=== PATIENT | male | born 1965 | race Caucasian/White ===

== ENCOUNTER 2016-08-22 21:20 | Emergency (ER) | payer OTHER ==
[~2016-08-22] VITALS: Ht 170.2 cm; Wt 104.3 kg
[~2016-08-22 21:20] MED LIST: ASPIR 8181 M1 PO; LIPITOR40 MG PO; LOPRESSOR25 MG PO; MOBIC7.5 MG PO; TRENTAL400 M1 PO; ULTRAM50 MG PO; ZYLOPRIM100 MG PO
[2016-08-22 21:29] VITALS: BP 133/82
--- NOTE | 2016-08-23 00:33 | NUR ---
PATIENT LEFT WITHOUT BEING SEEN BY DR. WADSWORTH. NO FURTHER CARE PROVIDED FOR PATIENT.
== END 2016-08-23 00:33 | disposition left against medical advice (07) ==
LOC: MED 21:20
DX: M79.89 Other specified soft tissue disorders (principal); Z53.21 Procedure and treatment not carried out due to patient leaving prior to being seen by health care provider

== ENCOUNTER 2018-03-06 07:51 | Emergency (ER) | payer OTHER ==
[~2018-03-06] VITALS: Ht 167.6 cm; Wt 91.6 kg
[~2018-03-06 07:51] MED LIST changes: +ALLO100T21 PO; +ASPI81EC98 PO; -ASPIR 8181 M1 PO; +ATOR40TA PO; -LIPITOR40 MG PO; -LOPRESSOR25 MG PO; +MELO7.5T11 PO; +METO25TA PO; -MOBIC7.5 MG PO; +PENT400T PO; +TRAM50TA1 PO; -TRENTAL400 M1 PO; -ULTRAM50 MG PO; -ZYLOPRIM100 MG PO
[2018-03-06 08:09] VITALS: BP 128/87
--- NOTE | 2018-03-06 08:14 | NUR ---
PATIENT WHEELCHAIR ASSISTED TO BED 6.
--- NOTE | 2018-03-06 08:30 | NUR ---
53 yo m bib friend with c/o left thigh radiating to left foot x yesterday, progressively getting worse. Patient denies any recent injury or fall. Patient sts he has been drinking more often than usual...patient has history of gout. Swelling noted to left ankle. No discoloration noted. last drink last night. pt aaox4, gcs 15. cms intact. rr even and unlabored. lungs bl clear. abd soft, non-tender. bowel sounds active x 4 quadrants. skin pink, warm, dry to the touch. ambulatory w/ slow, steady gait. er md notified. pt needs met, safety precautions in place. will continue to monitor.
[2018-03-06] MEDS ORDERED: MORPHINE SULFATE 2 MG/ML SYR IM ONE (08:50)
[2018-03-06] MEDS ORDERED: KETOROLAC 60 MG/2 ML VIAL IM ONE (08:50)
[2018-03-06 09:30] VITALS: BP 128/87
--- NOTE | 2018-03-06 09:31 | NUR ---
Patient discharged with v/s stable. Written and verbal after care instructions given and explained. Patient alert, oriented and verbalized understanding of instructions. Wheel Chair Assisted with to car. All questions addressed prior to discharge. ID band removed. Patient advised to follow up with PMD. Rx of voltaren xr given. Patient educated on indication of medication including possible reaction and side effects. Opportunity to ask questions provided and answered.
== END 2018-03-06 09:25 | disposition home or self-care (01) ==
LOC: MED 07:51
DX: M54.16 Radiculopathy, lumbar region (principal); I48.91 Unspecified atrial fibrillation; I10 Essential (primary) hypertension; F17.200 Nicotine dependence, unspecified, uncomplicated; Z79.899 Other long term (current) drug therapy
CPT/HCPCS: 96372; 99284; J1885; J2270

== ENCOUNTER 2018-04-07 11:28 | Emergency (ER) | payer OTHER ==
[~2018-04-07] VITALS: Ht 170.2 cm; Wt 92.5 kg
[2018-04-07 11:39] VITALS: BP 124/70
--- NOTE | 2018-04-07 12:03 | NUR ---
PATIENT PRESENTS TO ED WITH THE CHIEF C/O B/L FOOT PAIN SINCE 5 DAYS AGO . PT HAS OPEN WOUND IN BETWEEN GREAT TOE AND 2ND TOE ON LEFT FOOT AND 2ND TOE AND 3RD TOE ON RIGHT FOOT. PT STATES HE WAS DOING YARD WORK WHEN SYMPTOMS STARTED. DENIES N/V/D; SKIN IS PINK/WARM/DRY; AAOX4 WITH EVEN AND STEADY GAIT; LUNGS CLEAR BL; HR EVEN AND REGULAR; PT DENIES ANY FEVER, CP, SOB, OR COUGH AT THIS TIME; PATIENT STATES FOOT PAIN OF 10/10 AT THIS TIME; VSS; PATIENT POSITIONED FOR COMFORT; HOB ELEVATED; BEDRAILS UP X2; BED DOWN. ER MD MADE AWARE OF PT STATUS.
[2018-04-07] MEDS ORDERED: KETOROLAC 60 MG/2 ML VIAL IM ONE (12:55)
--- NOTE | 2018-04-07 13:01 | NUR ---
Patient discharged with v/s stable. Written and verbal after care instructions given and explained to police and pt. Verbalized understanding. Ambulatory with in custody. All questions addressed prior to discharge. Advised to follow up with PMD. Addendum: 04/07/18 at 1304 by [email or web address] WRONG PT CHARTING
--- NOTE | 2018-04-07 14:00 | NUR ---
VERBALIZED DECREASED PAIN. SLEEPING IN BED COMFORTABLY AT THIS TIME.
[2018-04-07] MEDS ORDERED: BACITRACIN OINT 500 UNITS/GM PKT TP ONE (14:35)
--- NOTE | 2018-04-07 15:02 | NUR ---
PROVIDED PT WITH WOUND CARE BY IRRIGATION OF BOTH FEET FOLLOWED APPLYING BACITRACIN. DRESSED THE WOUNDS USING NON ADHERENT DRESSING AND WRAPPED THEM WITH A ROLL OF GAUZE.
--- NOTE | 2018-04-07 15:41 | NUR ---
Patient discharged with v/s stable. Written and verbal after care instructions given and explained. Patient alert, oriented and verbalized understanding of instructions. Ambulatory with steady gait. All questions addressed prior to discharge. ID band removed. Patient advised to follow up with PMD. Rx of BACTRIM, MOTRIN AND KEFLIX given. Patient educated on indication of medication including possible reaction and side effects. Opportunity to ask questions provided and answered.
[2018-04-07 15:44] VITALS: BP 119/69
== END 2018-04-07 15:41 | disposition home or self-care (01) ==
LOC: MED 11:28
DX: L03.116 Cellulitis of left lower limb (principal); L03.115 Cellulitis of right lower limb; I10 Essential (primary) hypertension; Z79.899 Other long term (current) drug therapy; Z79.82 Long term (current) use of aspirin
CPT/HCPCS: 96372; 99283; J1885

== ENCOUNTER 2018-10-25 17:36 | Inpatient (IN) | payer OTHER ==
[~2018-10-25] VITALS: Ht 170.2 cm; Wt 86.2 kg
[2018-10-25 17:45] VITALS: BP 136/84
--- NOTE | 2018-10-25 17:45 | NUR ---
PATIENT AMBULATED TO ER BED 11.
--- NOTE | 2018-10-25 17:52 | NUR ---
PT C/O SHAVONNE SHOULDER PAIN & DIZZINESS X3 DAYS, ALSO REPORTS FATIGUE, DIFF BREATHING AND NAUSEA. REPORTS BLURRY VISION. TOOK GABAPENTIN. PMH---GOUT, ANEMIA, [place] (2014), SPINAL ARTHRITIS. PATIENT STATES PAIN OF 5/10 AT THIS TIME; PATIENT POSITIONED FOR COMFORT; HOB ELEVATED; BEDRAILS UP X2; BED DOWN. ER MADE AWARE OF PT STATUS. Addendum: 10/25/18 at 1759 by [email or web address] PT STATED FEEL STRESSFUL ABOUT HIS GIRLFRIEND & A PLACE TO STAY. HE STAYS WITH HIS DAUGHTER . Addendum: 10/25/18 at 1858 by [email or web address] HX:HTN, HIGH CHOLESTEROL
[2018-10-25] MEDS ORDERED: MORPHINE SULFATE 4 MG/ML SYR IVP ONE (18:25)
[2018-10-25] MEDS ORDERED: ASPIRIN 325 MG TAB PO ONE (18:25)
[2018-10-25] MEDS ORDERED: NITROGLYCERIN 2% 1 GM PKT TP ONE (18:25)
--- NOTE | 2018-10-25 18:29 | NUR ---
C/O CP AT THIS TIME.
[2018-10-25 18:39] LABS: BASOPHILS # (AUTO) 0.1 K/uL (0.00-0.22); BASOPHILS % (AUTO) 1.3 % (0.0-2.0); EOSINOPHILS # (AUTO) 0.1 K/uL (0-0.4); EOSINOPHILS % (AUTO) 1.1 % (0.0-4.0); HEMOGLOBIN 10.2 g/dL (12.0-18.0); LYMPHOCYTES % (AUTO) 25.7 % (20.5-51.1); MEAN CORPUSCULAR HEMOGLOBIN 22 pg (27-31); MEAN CORPUSCULAR HGB CONC 31 g/dL (33-37); MEAN CORPUSCULAR VOLUME 69.8 fL (80-94); MONOCYTES # (AUTO) 0.5 K/uL (0.8-1.0); MONOCYTES % (AUTO) 6.3 % (1.7-9.3); NEUTROPHILS # (AUTO) 5.1 K/uL (1.8-7.7); NEUTROPHILS % (AUTO) 65.6 % (42.2-75.2); PLATELET COUNT (AUTO) 346 K/uL (140-450); RED BLOOD CELL COUNT(AUTO) 4.72 MIL/uL (4.20-6.10); RED CELL DISTRIBUTION WIDTH 21.6 % (11.6-13.7); WHITE BLOOD COUNT (AUTO) 7.8 K/uL (4.8-10.8)
[2018-10-25] MEDS ORDERED: SIMVASTATIN 20 MG TAB PO SCH (18:45)
--- NOTE | 2018-10-25 18:48 | NUR ---
spoke to pt's daughter;abebe [phone].
[2018-10-25 18:57] LABS: CHOL/HDL RATIO 2.9 (1-4.5)
[2018-10-25] MEDS ORDERED: GABA300C PO (19:01)
[2018-10-25 19:02] LABS: CREATINE KINASE MB 1.4 ng/mL (0-3.6)
--- NOTE | 2018-10-25 19:05 | NUR ---
Pt report given to AMANDA VAZQUEZ. Transfer of care at this time.
[2018-10-25 19:13] LABS: ANION GAP 11.4 (8-16); CARBON DIOXIDE 26.1 mmol/L (21-32); POTASSIUM 3.5 mmol/L (3.5-5.1)
[2018-10-25 19:16] LABS: TOTAL BILIRUBIN 0.3 mg/dL (0.0-1.0)
--- NOTE | 2018-10-25 19:18 | NUR ---
RECIEVED REPORT FROM DAY SHIFT KEERTHI VAZQUEZ. Addendum: 10/25/18 at 1919 by ROMY VSS ON MONITOR.
--- NOTE | 2018-10-25 19:33 | NUR ---
UNABLE TO GIVE STATIN, DR ROSE MADE AWARE. STATED TO INFORM ADMITTING
[2018-10-25] MEDS: NACL 0.9% 1,000 ML IV SCH (19:39)
[2018-10-25] MEDS ORDERED: HYDROcodone/APAP 5/325 MG 1 TAB TAB PO PRN (19:40)
[2018-10-25] MEDS ORDERED: LORazepam 2 MG/ML VIAL IM/IVP PRN (19:40)
[2018-10-25] MEDS ORDERED: ZOLPIDEM 5 MG TAB PO PRN (19:40)
[2018-10-25] MEDS ORDERED: DOCUSATE SODIUM 100 MG GELCAP PO PRN (19:40)
[2018-10-25] MEDS ORDERED: ACETAMINOPHEN 325 MG TAB PO PRN (19:40)
[2018-10-25] MEDS ORDERED: MORPHINE SULFATE 2 MG/ML SYR IVP PRN (19:40)
[2018-10-25] MEDS ORDERED: ONDANSETRON 4 MG/2 ML VIAL IM/IVP PRN (19:40)
--- NOTE | 2018-10-25 19:50 | NUR ---
PT ARRIVED FROM ER VIA GURNEY. AAOX4. NO C/O PAIN OR DIZZINESS AT THIS TIME. NO RESP DISTRESS NOTED. SKIN INTACT. IV TO LEFT AC #20G, PATENT AND INTACT. PT AMBULATES WITHOUT ASSIST. PT HAS WHITE SPOTS/VITILIGO ON THE SKIN, BODY AND FACE. ORIENTED PT TO ROOM. DISCUSSED PLAN OF CARE, PT VERBALIZED UNDERSTANDING. SAFETY PRECAUTION IN PLACE. CALL LIGHT WITHIN REACH.
--- NOTE | 2018-10-25 19:57 | NUR ---
[facility] ADMITTED TO TELEMETRY UNIT UNDER CARE OF DR. SMITH. REPORT GIVEN TO RN. [facility].
[2018-10-25 20:00] VITALS: BP 122/74
[2018-10-25 20:03] LABS: APPEARANCE,URINE CLEAR (CLEAR); BILIRUBIN,URINE NEGATIVE (NEGATIVE); BLOOD, URINE NEGATIVE (NEGATIVE); COLOR,URINE YELLOW (YELLOW); LEUKOCYTE ESTERASE ,URINE NEGATIVE (NEGATIVE); NITRITE, URINE NEGATIVE (NEGATIVE); UGLUCOSE NEGATIVE (NEGATIVE)
[2018-10-25 20:09] LABS: PROTHROMBIN TIME 9.5 secs (10.8-13.4)
[2018-10-25 20:11] LABS: BARBITURATE, URINE NEG. ng/ml (NEG <=200); BENZODIAZEPINE, URINE NEG. ng/mL (NEG <=200); CANNABINOID, URINE NEG. ng/mL (NEG <=50); COCAINE, URINE NEG. ng/mL (NEG <=300); OPIATE, URINE NEG. ng/mL (NEG <=2000); PHENCYCLIDINE SCREEN,URINE NEG. ng/mL (NEG <=25)
[2018-10-25 20:20] LABS: CHOL/HDL RATIO 3.1 (1-4.5); MAGNESIUM 1.8 mg/dL (1.8-2.4); PHOSPHORUS 2.1 mg/dL (2.5-4.9); THYROID STIMULATING HORMONE 2.01 uIU/mL (0.34-3.74)
[2018-10-25] MEDS ORDERED: NITROGLYCERIN 0.4 MG TAB SL PRN (20:55)
[2018-10-25] MEDS: SIMVASTATIN 20 MG TAB PO SCH (21:02)
[2018-10-25] MEDS ORDERED: ALLOPURINOL 100 MG TAB PO SCH ×2 (21:10→21:30)
[2018-10-25] MEDS ORDERED: GABAPENTIN 300 MG CAP PO SCH (21:30)
--- NOTE | 2018-10-25 22:00 | NUR ---
PT REFUSED SCD. EXPLAINED TO PT THE RISK AND BENEFITS. PT VERBALIZED UNDERSTANDING. PT AMBULATES WITHOUT ASSIST.
[2018-10-26] VITALS: BP 110/65
--- NOTE | 2018-10-26 | NUR ---
V/S CHECKED, WNL. PT RESTING IN BED. NO C/O PAIN OR DIZZINESS AT THIS TIME. ALL NEEDS ATTENDED AT THIS TIME.
[2018-10-26] MEDS ORDERED: SODIUM FERRIC GLUCONATE 125 MG in NACL 0.9% 100 ML IV ONE (01:25)
--- NOTE | 2018-10-26 02:10 | NUR ---
PT ASKED FOR SNACK. SNACK PROVIDED. ALL NEEDS MET AT THIS TIME. CALL LIGHT WITHIN REACH.
[2018-10-26 04:00] VITALS: BP 109/64
--- NOTE | 2018-10-26 04:30 | NUR ---
PT SLEEPING BUT EASILY AROUSABLE. NO S/S OF PAIN OR DISCOMFORT. NO S/S OF RESP DISTRESS NOTED. CALL LIGHT WITHIN REACH.
--- NOTE | 2018-10-26 05:55 | NUR ---
PT'S HEART RATE ON MONITOR 45. PT SLEEPING BUT EASILY AROUSABLE. NO S/S OF ACUTE DISTRESS. DR. BROWN MADE AWARE.
[2018-10-26] MEDS ORDERED: SODIUM FERRIC GLUCONATE 125 MG in NACL 0.9% 100 ML IV SCH (06:00)
[2018-10-26 06:53] LABS: ANION GAP 10.7 (8-16); CARBON DIOXIDE 28.1 mmol/L (21-32); POTASSIUM 3.8 mmol/L (3.5-5.1)
[2018-10-26 06:54] LABS: BASOPHILS # (AUTO) 0.1 K/uL (0.00-0.22); BASOPHILS % (AUTO) 1.3 % (0.0-2.0); EOSINOPHILS # (AUTO) 0.2 K/uL (0-0.4); EOSINOPHILS % (AUTO) 2.3 % (0.0-4.0); HEMATOCRIT 29.4 % (36-52); HEMOGLOBIN 9.2 g/dL (12.0-18.0); LYMPHOCYTES # (AUTO) 2.8 K/uL (2.0-11.5); LYMPHOCYTES % (AUTO) 35.1 % (20.5-51.1); MEAN CORPUSCULAR HEMOGLOBIN 22 pg (27-31); MEAN CORPUSCULAR HGB CONC 31 g/dL (33-37); MEAN CORPUSCULAR VOLUME 69.1 fL (80-94); MONOCYTES # (AUTO) 0.7 K/uL (0.8-1.0); MONOCYTES % (AUTO) 9.1 % (1.7-9.3); NEUTROPHILS # (AUTO) 4.2 K/uL (1.8-7.7); NEUTROPHILS % (AUTO) 52.2 % (42.2-75.2); PLATELET COUNT (AUTO) 324 K/uL (140-450); RED BLOOD CELL COUNT(AUTO) 4.26 MIL/uL (4.20-6.10); RED CELL DISTRIBUTION WIDTH 22.1 % (11.6-13.7)
--- NOTE | 2018-10-26 07:10 | NUR ---
ENDORSED PT TO DAY SHIFT NURSE. PT IN STABLE CONDITION.
--- NOTE | 2018-10-26 07:11 | NUR ---
RECEIVED BEDSIDE REPORT FROM NIGHT NURSE. PT IS AOX4 WITH NO PAIN OR REQUESTS. NO OBVIOUS SIGNS OF DISTRESS AND IV SITE IS CURRENTLY A LEFT ANTECUBITAL THAT IS PATENT AND INTACT WITH NORMAL SALINE INFUSING AT 60ML/HR. ALL SAFETY MEASURES ARE IN PLACE WITH CALL LIGHT WITHIN REACH.
[2018-10-26 08:00] VITALS: BP 106/62
--- NOTE | 2018-10-26 08:30 | NUR ---
PATIENT HAS BEEN SCREENED AND CATEGORIZED MODERATE NUTRITION RISK. PATIENT WILL BE SEEN WITHIN 3-5 DAYS OF ADMISSION. 10/28/18DYANA DEL [address]
[2018-10-26] MEDS ORDERED: METOPROLOL 25 MG TAB PO SCH (09:00)
--- NOTE | 2018-10-26 09:24 | NUR ---
ADMINISTERED MEDICATIONS. PATIENT HAS NO COMPLAINTS OR REQUESTS AND IS FREE OF OBVIOUS SIGNS OF DISTRESS. REVIEWED INDICATIONS OF MEDICATIONS WITH PATIENT.
[2018-10-26] MEDS: GABAPENTIN 300 MG CAP PO SCH ×2 (09:42→20:06)
[2018-10-26] MEDS: ASPIRIN 81 MG TAB.CHEW PO SCH (09:42)
[2018-10-26] MEDS: ALLOPURINOL 100 MG TAB PO SCH ×2 (09:43→20:06)
[2018-10-26] MEDS: LISINOPRIL 5 MG TAB PO SCH (09:43)
[2018-10-26] MEDS: SODIUM FERRIC GLUCONATE 125 MG in NACL 0.9% 100 ML IV SCH (09:44)
--- NOTE | 2018-10-26 11:35 | NUR ---
ADMINISTERED MEDICATION FOR MILD HEAD ACHING TO PATIENT. PT HAS NO SIGNS OF DISTRESS WITH BREATHING EQUAL AND UNLABORED AOX4 AND NO OTHER REQUESTS AT THIS TIME.
[2018-10-26 12:00] VITALS: BP 118/80
[2018-10-26] MEDS: NACL 0.9% 1,000 ML IV SCH (12:36)
--- NOTE | 2018-10-26 13:17 | NUR ---
PT IS RESTING IN BED SLEEPING WITH BREATHING SYMMETRICAL AND UNLABORED.
--- NOTE | 2018-10-26 13:58 | NUR ---
PT RESTING IN BED STATING THAT HIS HEADACHE HAS SUBSIDED AND THE TYLENOL EARLY HAS HELPED HIM A LOT. PT HAS NO OTHER REQUESTS AND APPEARS FREE OF ANY OBVIOUS SIGNS OF DISTRESS.
[2018-10-26 16:00] VITALS: BP 113/74
--- NOTE | 2018-10-26 16:10 | NUR ---
PT SLEEPING IN BED UNLABORED BREATHING NO SIGNS OF DISTRESS.
--- NOTE | 2018-10-26 17:43 | NUR ---
PT IS RESTING IN BED NO OBVIOUS SIGNS OF DISTRESS BREATHING UNLABORED AND EQUAL.
--- NOTE | 2018-10-26 19:16 | NUR ---
GAVE BEDSIDE SHIFT REPORT AND REVIEWED POC WITH NIGHT NURSE. PT IN STABLE CONDITION.
--- NOTE | 2018-10-26 19:17 | NUR ---
REPORT RECEIVED FROM AM NURSE AT BEDSIDE. PT IN STABLE CONDITION. AAOX4. INTRODUCED SELF TO PT. BOARD UPDATED. NO COMPLAINTS OF PAIN. NO SOB. AFEBRILE. IV SITE L AC 20G RUNNING NS@60ML/HR PATENT AND INTACT. SKIN WARM, DRY, AND INTACT WITH NO OPEN WOUNDS. PT IS AMBULATORY. BED LOCKED IN LOW POSITION. CALL DIAZ WITHIN REACH. SAFETY PRECAUTION IN PLACE. ALL NEEDS MET AT THIS TIME.
[2018-10-26 20:00] VITALS: BP 112/71
[2018-10-26] MEDS: SIMVASTATIN 20 MG TAB PO SCH (20:06)
--- NOTE | 2018-10-26 20:06 | NUR ---
NEURONTIN, ALLOPURINOL, AND ZOCOR GIVEN PO. PT TOLERATED WELL.
--- NOTE | 2018-10-26 21:55 | NUR ---
PT SLEEPING COMFORTABLY BUT AROUSABLE. NO S/S OF DISTRESS NOTED. WILL CONTINUE TO MONITOR.
[2018-10-26] MEDS ORDERED: KETOROLAC 15 MG/ML VIAL IVP PRN (23:00)
[2018-10-27] VITALS: BP 125/76
--- NOTE | 2018-10-27 00:15 | NUR ---
PT SLEEPING COMFORTABLY IN BED BUT AROUSABLE. NO S/S OF DISTRESS NOTED. NO COMPLAINTS OF PAIN. NO SOB. AFEBRILE. WILL CONTINUE TO MONITOR.
--- NOTE | 2018-10-27 02:30 | NUR ---
PT SLEEPING COMFORTABLY BUT AROUSABLE. NO S/S OF DISTRESS NOTED. NO COMPLAINTS OF PAIN. NO SOB. AFEBRILE. WILL CONTINUE TO MONITOR.
[2018-10-27 04:00] VITALS: BP 113/69
--- NOTE | 2018-10-27 04:20 | NUR ---
PT SLEEPING BUT AROUSABLE FOR VS CHECK. NO S/S OF DISTRESS NOTED. RESPIRATIONS EVEN, UNLABORED, AND WNL. WILL CONTINUE TO MONITOR.
[2018-10-27] MEDS: NACL 0.9% 1,000 ML IV SCH (05:16)
--- NOTE | 2018-10-27 05:35 | NUR ---
PT SLEEPING COMFORTABLY BUT AROUSABLE. NO S/S OF DISTRESS NOTED. NO COMPLAINTS OF PAIN. NO SOB. AFEBRILE. WILL CONTINUE TO MONITOR.
[2018-10-27 05:57] LABS: BASOPHILS # (AUTO) 0.1 K/uL (0.00-0.22); BASOPHILS % (AUTO) 1.2 % (0.0-2.0); EOSINOPHILS # (AUTO) 0.1 K/uL (0-0.4); EOSINOPHILS % (AUTO) 1.4 % (0.0-4.0); HEMATOCRIT 31.7 % (36-52); HEMOGLOBIN 9.9 g/dL (12.0-18.0); LYMPHOCYTES # (AUTO) 2.4 K/uL (2.0-11.5); LYMPHOCYTES % (AUTO) 35.5 % (20.5-51.1); MEAN CORPUSCULAR HEMOGLOBIN 22 pg (27-31); MEAN CORPUSCULAR HGB CONC 31 g/dL (33-37); MEAN CORPUSCULAR VOLUME 69.3 fL (80-94); MONOCYTES # (AUTO) 0.6 K/uL (0.8-1.0); MONOCYTES % (AUTO) 9.4 % (1.7-9.3); NEUTROPHILS # (AUTO) 3.5 K/uL (1.8-7.7); NEUTROPHILS % (AUTO) 52.5 % (42.2-75.2); PLATELET COUNT (AUTO) 316 K/uL (140-450); RED BLOOD CELL COUNT(AUTO) 4.57 MIL/uL (4.20-6.10); RED CELL DISTRIBUTION WIDTH 21.4 % (11.6-13.7); WHITE BLOOD COUNT (AUTO) 6.7 K/uL (4.8-10.8)
[2018-10-27 06:25] LABS: ANION GAP 10.1 (8-16); CARBON DIOXIDE 27.8 mmol/L (21-32); CREATININE 0.9 mg/dL (0.7-1.3); POTASSIUM 3.9 mmol/L (3.5-5.1)
[2018-10-27 06:44] LABS: MAGNESIUM 1.8 mg/dL (1.8-2.4); PHOSPHORUS 3.1 mg/dL (2.5-4.9)
--- NOTE | 2018-10-27 07:23 | NUR ---
REPORT GIVEN TO AM NURSE AT BEDSIDE. PT IN STABLE CONDITION.
--- NOTE | 2018-10-27 07:24 | NUR ---
RECEIVED BEDSIDE REPORT FROM GEORGE GAO. PATIENT ON TELE MONITOR AND STANDARD PRECAUTIONS IN PLACE. PATIENT AAOX4 AND ON ROOM AIR, NO DISTRESS NOTED. SKIN INTACT, PRESENCE OF VITILIGO. PATIENT AMBULATORY. IV ON L AC 20G INFUSING NS AT 60, IV ASYMPTOMATIC PATENT AND INTACT. BED IN LOW POSITION, CALL LIGHT WITHIN REACH, SIDE RAILS X2 UP
[2018-10-27 08:00] VITALS: BP 133/72
[2018-10-27] MEDS: ALLOPURINOL 100 MG TAB PO SCH (08:50)
[2018-10-27] MEDS: GABAPENTIN 300 MG CAP PO SCH (08:50)
[2018-10-27] MEDS: LISINOPRIL 5 MG TAB PO SCH (08:51)
[2018-10-27] MEDS: ASPIRIN 81 MG TAB.CHEW PO SCH (08:51)
[2018-10-27] MEDS: SODIUM FERRIC GLUCONATE 125 MG in NACL 0.9% 100 ML IV SCH (08:53)
--- NOTE | 2018-10-27 08:58 | NUR ---
ADMINISTERED SCHEDULED MEDS. PATIENT TOLERATED WELL
--- NOTE | 2018-10-27 11:42 | NUR ---
PATIENT SLEEPING, ON ROOM AIR, NO DISTRESS NOTED
[2018-10-27 12:00] VITALS: BP 119/64
--- NOTE | 2018-10-27 13:30 | NUR ---
PATIENT SLEEPING, ON ROOM AIR, UNLABORED BREATHING
[2018-10-27] MEDS ORDERED: ALLO100T21 PO (14:07)
--- NOTE | 2018-10-27 15:29 | NUR ---
DISCHARGE INSTRUCTIONS PROVIDED TO PATIENT. PATIENT SKIN INTACT. PNA VACCINE NOT APPLICABLE AND FLU NOT IN SEASON. ALL BELONGINGS SENT HOME WITH PATIENT. PROVIDED RESOURCE PACKET TO PATIENT. PATIENT IS HOMELESS AND HAS OWN CAR. CLOTHES PROVIDED TO PATIENT AND MEAL PROVIDED TO PATIENT. REMOVED WRIST BAND AND IV, IV TIP INTACT. PATIENT AWARE OF APPOINTMENT WITH DR. RICHARDS AT [address] [place] [id number] ON Thursday11/01/18 AT 12 PM. INSTRUCTED PATIENT TO RETURN TO NEAREST ER OR CALL 911 IF HE EXPERIENCES SOB, PAIN, FEVER, WORSENING OF SYMPTOMS. PATIENT VERBALIZED UNDERSTANDING. ANSWERED ALL QUESTIONS AND CONCERNS
[2018-10-28 17:12] LABS: FOLIC ACID 19.5 ng/mL (>3.0)
== END 2018-10-27 15:45 | disposition home or self-care (01) | DRG 206 ==
LOC: MED 17:36 → MTU 19:34
PROVIDERS: ADMIT General Practice; ATTEND General Practice
DX: M94.0 Chondrocostal junction syndrome [Tietze] (principal); E44.0 Moderate protein-calorie malnutrition; K21.9 Gastro-esophageal reflux disease without esophagitis; D63.8 Anemia in other chronic diseases classified elsewhere; D50.9 Iron deficiency anemia, unspecified; E83.39 Other disorders of phosphorus metabolism; F19.10 Other psychoactive substance abuse, uncomplicated; M10.9 Gout, unspecified; Z68.29 Body mass index [BMI] 29.0-29.9, adult; I25.2 Old myocardial infarction; I10 Essential (primary) hypertension; E78.5 Hyperlipidemia, unspecified; Z79.899 Other long term (current) drug therapy; Z79.82 Long term (current) use of aspirin; Z82.49 Family history of ischemic heart disease and other diseases of the circulatory system; Z59.0 Homelessness
CPT/HCPCS: 36415; 71045; 80048; 80053; 80305; 81003; 82550; 82553; 82607; 82728; 82746; 83036; 83540; 83690; 83735; 83880; 84100; 84134; 84443; 84484; 85025; 85045; 85379; 85610; 85730; 87081; 93005; 96374; 99291; J2270; J2916; J7030

== ENCOUNTER 2018-11-29 01:51 | Emergency (ER) | payer OTHER ==
[~2018-11-29] VITALS: Ht 170.2 cm; Wt 88.5 kg
[~2018-11-29 01:51] MED LIST changes: -ASPI81EC98 PO; -ATOR40TA PO; +GABA300C PO; -MELO7.5T11 PO; -METO25TA PO; -PENT400T PO; -TRAM50TA1 PO
[2018-11-29 02:04] VITALS: BP 162/90
--- NOTE | 2018-11-29 02:04 | NUR ---
TO BED # 08 AMBULATORY
--- NOTE | 2018-11-29 02:04 | NUR ---
53 Y/O MALE PRESENTS TO ED WITH C/O GOUT FLAREUP TO RIGHT HAND AFTER EATING RED MEAT X1 DAY AGO. EDEMA PRESENT TO RIGHT HAND. 1010 PAIN. PT HAS HX OF GOUT AND HOME MEDS. STATES HOME MEDS INNEFECTIVE AT THIS TIME. ER MD AWARE. CONTINUE TO MONITOR.
[2018-11-29] MEDS ORDERED: HYDROmorphone PFS 2 MG/ML SYR IM ONE (02:15)
--- NOTE | 2018-11-29 03:10 | NUR ---
PT STATES PAIN RELEIEVED IN RIGHT HAND. 09/08. VSS. CONTINUE TO MONITOR.
--- NOTE | 2018-11-29 04:00 | NUR ---
PT IN BED RESTING WITH EYES CLOSED. NO C/O PAIN AT THIS TIME. VSS. CONTINUE TO MONITOR.
--- NOTE | 2018-11-29 05:20 | NUR ---
PT DISCHARGED BY DR ROSE. RX OF COLCHINCINE AND ALLOPURINOL GIVEN. SIDE EFFECTS EXPLAINED. PT CHIN BALLIZED UNDERSTANDING OF DC INSTRUCTIONS. ALL QUESTIONS ANSWERED.
[2018-11-29 05:21] VITALS: BP 154/87
== END 2018-11-29 05:20 | disposition home or self-care (01) ==
LOC: MED 01:51
DX: M10.9 Gout, unspecified (principal); I25.2 Old myocardial infarction; I10 Essential (primary) hypertension; Z79.899 Other long term (current) drug therapy
CPT/HCPCS: 96372; 99283; J1170

== ENCOUNTER 2023-06-21 20:38 | Emergency (ER) | payer OTHER ==
[~2023-06-21] VITALS: Ht 170.2 cm; Wt 77.1 kg
[2023-06-21 20:48] VITALS: BP 125/73; PULSE 97; RESP 20; TEMP 97.5; O2SAT 97
[2023-06-21 22:46] LABS: BASOPHILS # (AUTO) 0.1 K/uL (0.00-0.22); BASOPHILS % (AUTO) 0.7 % (0.0-2.0); EOSINOPHILS # (AUTO) 0.1 K/uL (0-0.4); EOSINOPHILS % (AUTO) 0.5 % (0.0-4.0); HEMATOCRIT 39.4 % (36-52); HEMOGLOBIN 12.5 g/dL (12.0-18.0); LYMPHOCYTES # (AUTO) 1.3 K/uL (2.0-11.5); LYMPHOCYTES % (AUTO) 10.5 % (20.5-51.1); MEAN CORPUSCULAR HEMOGLOBIN 24 pg (27-31); MEAN CORPUSCULAR HGB CONC 32 g/dL (33-37); MEAN CORPUSCULAR VOLUME 76.7 fL (80-94); MONOCYTES # (AUTO) 1.7 K/uL (0.8-1.0); MONOCYTES % (AUTO) 13.8 % (1.7-9.3); NEUTROPHILS # (AUTO) 9.4 K/uL (1.8-7.7); NEUTROPHILS % (AUTO) 74.5 % (42.2-75.2); PLATELET COUNT (AUTO) 215 K/uL (140-450); RED BLOOD CELL COUNT(AUTO) 5.13 MIL/uL (4.20-6.10); RED CELL DISTRIBUTION WIDTH 18.4 % (11.6-13.7); WHITE BLOOD COUNT (AUTO) 12.6 K/uL (4.8-10.8)
[2023-06-21 23:06] LABS: ANION GAP 6.9 (8-16); CALCIUM 9.7 mg/dL (8.5-10.1); CARBON DIOXIDE 30.1 mmol/L (21-32); CREATININE 1.1 mg/dL (0.6-1.3); TOTAL BILIRUBIN 0.8 mg/dL (0.0-1.0); TOTAL PROTEIN, SERUM 8.9 g/dL (6.4-8.2)
[2023-06-21] MEDS ORDERED: PRED20TA5 PO (23:46)
[2023-06-22] MEDS ORDERED: KETOROLAC 60 MG/2 ML VIAL IM ONE
[2023-06-22 00:46] VITALS: BP 143/76; PULSE 77; RESP 18; TEMP 97.5; O2SAT 99
== END 2023-06-22 00:45 | disposition home or self-care (01) ==
LOC: MED 20:38
DX: R07.89 Other chest pain (principal); M10.9 Gout, unspecified; M79.671 Pain in right foot; I11.9 Hypertensive heart disease without heart failure; Z79.899 Other long term (current) drug therapy
CPT/HCPCS: 36415; 71045; 80053; 83880; 84484; 85025; 93005; 96372; 99285; J1885